=== PATIENT | male | born 1965 | race Caucasian/White ===

== ENCOUNTER → 2021-09-30 16:10 | Outpatient (BNVA) | payer MEDICAID, SELFPAY | PROVIDERS: PCP Internal Medicine; Visit Provider Surgery | DX: Z12.11 Encounter for screening for malignant neoplasm of colon (principal) | CPT/HCPCS: 99202 ==

== ENCOUNTER 2021-12-10 07:15 | Day surgery (SDC) | payer MEDICAID, SELFPAY ==
--- NOTE | 2021-12-08 15:08 | HO.ANESPROP2 ---
Documented by User: Evy Kurtz NP 12/08/21 15:08 HPI - Anesthesia Eval Consult details Narrative: 56yo M for Colonoscopy with poss Polypectomy PMFSH Active Problems Active Problems: All Active Problems (Updated 12/06/21 @ 13:43 by Carey Perdomo, RN) Colon cancer screening (Acute) Past Medical History Medical History (Updated 12/06/21 @ 13:43 by Carey Perdomo, RN) Colon cancer screening DM type 2 (diabetes mellitus, type 2) Elevated cholesterol History of alcohol abuse Surgical History Surgical History (Updated 12/06/21 @ 13:39 by Carey Perdomo, RN) Hx of colonoscopy Social History Social History Patient Tobacco Use Status: Never used Tobacco Second Hand Smoke Exposure: No Meds Allergies Allergy/AdvReac Type Severity Reaction Status Date / Time metformin [METFORMIN] Allergy Intermediate RASH Verified 12/10/21 07:51 acetaminophen [From Percocet] AdvReac stomach Verified 12/06/21 13:45 pain lisinopril AdvReac Cough Verified 12/06/21 13:45 oxycodone [From Percocet] AdvReac stomach Verified 12/06/21 13:45 pain Home Medications Medication Instructions Recorded Confirmed Last Taken Type aspirin 81 mg tablet,delayed 81 mg PO DAILY 09/30/21 12/06/21 Unknown History release atorvastatin 40 mg tablet 40 mg PO BEDTIME 09/30/21 12/06/21 Unknown History dulaglutide 0.75 mg/0.5 mL 0.75 mg subcut QWEEK 09/30/21 12/06/21 Unknown History subcutaneous pen injector (Trulicity) glipizide 10 mg tablet 10 mg PO DAILY 09/30/21 12/06/21 Unknown History insulin glargine 100 unit/mL (3 18 unit subcut QPM 09/30/21 12/06/21 Unknown History mL) subcutaneous pen (Lantus Solostar U-100 Insulin) losartan 25 mg tablet 25 mg PO DAILY 09/30/21 12/06/21 Unknown History pioglitazone 30 mg tablet 30 mg PO DAILY 09/30/21 12/06/21 Unknown History Exam Exam Date and Time: December 08, 2021 870 Assessment and Plan Assessment Anesthesia Assessment: Chart Reviewed Documented by User: Feliciano Fajardo MD 12/10/21 12:50 [facility] Past Medical History Medical History (Updated 12/06/21 @ 13:43 by Carey Perdomo RN) Colon cancer screening DM type 2 (diabetes mellitus, type 2) Elevated cholesterol History of alcohol abuse Family History Family history of problems with anesthesia: No Surgical History Surgical History (Updated 12/06/21 @ 13:39 by Carey Perdomo RN) Hx of colonoscopy History of Problems with Anesthesia: No Social History Social History Patient Tobacco Use Status: Never used Tobacco Second Hand Smoke Exposure: No Meds Allergies Allergy/AdvReac Type Severity Reaction Status Date / Time metformin [METFORMIN] Allergy Intermediate RASH Verified 12/10/21 07:51 acetaminophen [From Percocet] AdvReac stomach Verified 12/06/21 13:45 pain lisinopril AdvReac Cough Verified 12/06/21 13:45 oxycodone [From Percocet] AdvReac stomach Verified 12/06/21 13:45 pain Home Medications Medication Instructions Recorded Confirmed Last Taken Type aspirin 81 mg tablet,delayed 81 mg PO DAILY 09/30/21 12/06/21 Unknown History release atorvastatin 40 mg tablet 40 mg PO BEDTIME 09/30/21 12/06/21 Unknown History dulaglutide 0.75 mg/0.5 mL 0.75 mg subcut QWEEK 09/30/21 12/06/21 Unknown History subcutaneous pen injector (Trulicity) glipizide 10 mg tablet 10 mg PO DAILY 09/30/21 12/06/21 Unknown History insulin glargine 100 unit/mL (3 18 unit subcut QPM 09/30/21 12/06/21 Unknown History mL) subcutaneous pen (Lantus Solostar U-100 Insulin) losartan 25 mg tablet 25 mg PO DAILY 09/30/21 12/06/21 Unknown History pioglitazone 30 mg tablet 30 mg PO DAILY 09/30/21 12/06/21 Unknown History Exam Airway Mallampati Class: IV TM Dist: >3cm Neck ROM: Full Denture: Upper Loose/Missing/Broken Teeth: Yes Heart: S1,S2 Lungs: b/l breath sounds Assessment and Plan Assessment Anesthesia Assessment: Anesthesia Plan Discussed Final Anesthetic Review Family History of Problems with Anesthesia: No History of Problems with Anesthesia: No NPO: Yes ASA Class: III Final Preanesthetic Review: Meds/Allgs Chart Reviewed, Consent Obtained/Reviewed and Anes Risks/Benef Reviewed Patient Risk: Intermediate Procedure Risk: Intermediate Anesthetic Plan Anesthetic Plan: MAC: Disposition: Standard PACU
[2021-12-10 07:53] VITALS: BMI 35.6
[2021-12-10 08:06] VITALS: BP 128/75; PULSE 80; RESP 16; TEMP 36.6; O2SAT 94
--- NOTE | 2021-12-10 08:07 | MHC.SHP ---
Pre-Procedural Eval Section A Date of Service: 12/10/21 Section B Chief Complaint: screening Details of Present Illness: Had a suboptimal bowel prep in 2017 Relevant Social History: None Present Medications: see Short Stay Collaborative assessment Medical History: Significant History ( hypertension, diabetes, hyperlipidemia) History of Previous Operations: No relevant previous surgery Allergies: Allergies Allergy/AdvReac Type Severity Reaction Status Date / Time metformin [METFORMIN] Allergy Intermediate RASH Verified 12/10/21 07:51 acetaminophen [From Percocet] AdvReac stomach Verified 12/06/21 13:45 pain lisinopril AdvReac Cough Verified 12/06/21 13:45 oxycodone [From Percocet] AdvReac stomach Verified 12/06/21 13:45 pain Review of Systems Sugical H&P ROS: Negative: Constitution, Cardiovascular, Respiratory, Neurological, Psychiatric, Hem-Onc, Allergic/Immunologic, Gastrointestinal, Genitourinary, Musculoskeletal, Integumentary, Endocrine and Eyes/Ears/Nose/Throat Exam Surgical H&P Exam: Normal: HEENT, Normal: Heart, Normal: Lungs, Normal: Extremities, Normal: Abdomen, Normal: Skin and Normal: Neurological Plan Diagnosis/Plan: Unchanged I have reviewed the history and physical and performed a pertinent physical examination on my patient. No changes have occurred unless specified.
[2021-12-10] MEDS: Lactated Ringers 1,000 ML 100 ML IVCONT (08:09)
[2021-12-10 08:11] LABS: Glucose, Whole Blood 105 mg/dL (60-115)
--- NOTE | 2021-12-10 08:49 | W.PM.OPN ---
Operative Note Operative Note Date of Service: 12/10/21 Narrative: Preop diagnosis: Colon cancer screening Postop diagnosis: 1. Small polyp in the cecum, about 8 mm in diameter, removed with cold forceps 2. one small diverticulum in the transverse colon Procedure: Colonoscopy with polypectomy using cold forceps Surgeon: Kentrell oPlanco MD The patient is a 56-year-old male who had a colonoscopy in 2017 with optimal bowel prep. I had recommended repeating his colonoscopy in 5 years at that time He understood the technique of colonoscopy. He was aware of the risks, benefits, and alternatives. He was brought to the operating room and placed in left lateral decubitus position under monitored anesthesia care. A surgical time-out was done. A full digital rectal exam was done and there were no palpable anal lesions nor induration. The tip of the Olympus colonoscope was gently introduced through the anal orifice advanced with insufflation all the way to the cecum. The cecum was intubated. The cecum was identified by visualization of the ileocecal valve as well as the appendiceal orifice. There was note of relatively flat polyp in the cecum, about 8 mm in size. This was removed using multiple bites of the cold forceps . I then proceeded to withdraw the scope gently with careful examination of the entire colonic mucosa being done with scope withdrawal. The patient had some segments with thin water stools which had to irrigate. Otherwise, it was unlikely that any lesion may have been missed. There was 1 small diverticulum seen in the transverse colon . The rectum was reached. There were no lesions seen. The anal canal was unremarkable. The scope was then withdrawn completely with desufflation. The patient tolerated procedure well. There were no complications noted. Depending on the path report, he may need another colonoscopy in the next 5 years.
[2021-12-10 08:56] VITALS: BP 119/75; PULSE 87; RESP 15; TEMP 36.4; O2SAT 97
[2021-12-10 09:11] VITALS: BP 125/75; PULSE 76; RESP 18; TEMP 36.4; O2SAT 95
== END 2021-12-10 09:40 | disposition home or self-care (01) ==
PROVIDERS: PCP Internal Medicine; Visit Provider Surgery
PROC: 0DBE8ZZ Excision of Large Intestine, Via Natural or Artificial Opening Endoscopic (ICD-10-PCS; CPT 45380; principal; 2021-12-10 08:30)
DX: Z12.11 Encounter for screening for malignant neoplasm of colon (principal); D12.0 Benign neoplasm of cecum; K57.30 Diverticulosis of large intestine without perforation or abscess without bleeding; E78.00 Pure hypercholesterolemia, unspecified; F10.11 Alcohol abuse, in remission; E11.9 Type 2 diabetes mellitus without complications; Z79.4 Long term (current) use of insulin; Z79.82 Long term (current) use of aspirin; Z79.899 Other long term (current) drug therapy; Z88.8 Allergy status to other drugs, medicaments and biological substances
CPT/HCPCS: 45380; 82947; 88305

== ENCOUNTER 2023-01-31 15:47 | Outpatient (REF) | payer MEDICAID, SELFPAY ==
--- NOTE | ~2023-01-31 | XR_ITS ---
EXAMINATION: XR KNEE, LEFT CLINICAL INFORMATION: Pain in left knee COMPARISON: None available. TECHNIQUE: Four views of the left knee. FINDINGS: No fracture or joint effusion. Alignment is anatomic. Joint spaces are maintained. No abnormal soft tissue calcification. XR/XR knee LT 3V IMPRESSION: Normal left knee.
== END 2023-01-31 15:48 | disposition home or self-care (01) ==
LOC: HO.HHCX 15:47
PROVIDERS: Visit Provider Internal Medicine
DX: M25.562 Pain in left knee (principal)
CPT/HCPCS: 73562

== ENCOUNTER 2023-02-28 09:06 | Outpatient (REF) | payer MEDICAID, SELFPAY ==
[2023-02-28 11:47] LABS: Alanine Aminotransferase 32 U/L (0-40); Albumin Level 4.2 g/dL (3.5-5.0); Alkaline Phosphatase 67 U/L (39-117); Aspartate Amino Transferase 26 U/L (5-37); Bilirubin Direct 0.3 mg/dL (0.0-0.5); Bilirubin Total 0.8 mg/dL (0.0-1.0); Cholesterol 154 mg/dL (<200); HDL Cholesterol 46 mg/dL (>40); LDL Cholesterol Calculated 95 mg/dL (<100); Total Protein 7.6 g/dL (6.5-8.0); Triglycerides 65 mg/dL (<150)
== END 2023-02-28 09:07 | disposition home or self-care (01) ==
LOC: HO.HHCL 09:06
PROVIDERS: Visit Provider Internal Medicine
DX: E78.2 Mixed hyperlipidemia (principal)
CPT/HCPCS: 36415; 80061; 80076

== ENCOUNTER 2023-03-10 14:43 | Outpatient (AMB) | payer MEDICAID, SELFPAY ==
--- NOTE | 2023-03-10 14:45 | MHC.OFFVIS ---
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 No hx of Injections, and brace. Hx of left knee locking. Patient reports ongoing pain for 2 months. He states taking Tylenol with no relief. Pain is on the medial aspect of the knee per patient. He states that his pain is worse when using the stairs and getting up from a sitting position. Pain get so bad to the point he is unable to get up from his bed per patient. 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 The patient claims to have a history of left knee locking. He states his pain has been ongoing for the last 2 months. He confirms taking Tylenol with no relief. He claims the pain is on the medial aspect of the left knee. He reports an increase in pain with use of the stairs and getting up from a sitting position. He states the pain can become so bad that he is unable to get up. Patient denies a history of cortisone injections or bracing. [facility] Medical History (Updated 03/10/23 @ 15:16 by Olga Magallon) History of alcohol abuse Elevated cholesterol DM type 2 (diabetes mellitus, type 2) Colon cancer screening Surgical History (Updated 12/06/21 @ 13:39 by Carey Perdomo RN) Hx of colonoscopy Social History Patient Tobacco Use Status: Never used Tobacco Second Hand Smoke Exposure: No Review of Systems Const All systems reviewed & are unremarkable except as noted in HPI and below Physical Exam Vital Signs: BMI result Body Mass Index 36.4 Const General: cooperative and no acute distress Orientation/consciousness: patient oriented x3 Resp Effort & Inspection: normal respiratory effort and able to speak in complete sentences Cardio Peripheral pulses: Peripheral pulses 2+ throughout Skin General skin exam: no rashes or lesions noted Neuro General: patient oriented x3 Extrem Other: Left knee: Tenderness to palpation medial joint line. Negative Miguel's. Negative anterior drawer. NVI. Office Procedures Joint Injection/Drain Joint Injection/Drain Primary Site: left knee Prep: site was prepped using aseptic technique, ethochloride spray was applied and injection warnings given Injected: 40 mg of, DepoMedrol, with 8 mL of (2% plain lido ) and in the joint Approach Used: anterolateral Procedure: The patient tolerated the procedure well, but had some pain with the injection and there was some relief with the local anesthesia Coding 95471 - Large joint Procedure code (CPT) selection complete Results Reviewed Results Reviewed: 03/10/23 15:01 Lidocaine HCl 2 % MPF [Xylocaine 2 % MPF] 5 ml .ROUTE .STK-MED ONE methylPREDNISolone acetate [DEPO-MedroL] 40 mg .ROUTE .STK-MED ONE Assessment & Plan Assessment & Plan (1) Internal derangement of left knee: Code(s): M23.92 - Unspecified internal derangement of left knee (2) Diabetes mellitus: Code(s): E11.9 - Type 2 diabetes mellitus without complications Plan Mr. Estes is a 57-year-old male who presents in the office today, as a new patient, for an evaluation of left knee pain. The patient claims to have a history of left knee locking. He states his pain has been ongoing for the last 2 months. He confirms taking Tylenol with no relief. He claims the pain is on the medial aspect of the left knee. He reports an increase in pain with use of the stairs and getting up from a sitting position. He states the pain can become so bad that he is unable to get up. Patient denies a history of cortisone injections or bracing. The patient was offered a cortisone injection in the left knee with 40 mg of DepoMedrol. The patient was explained the risk, benefits, and alternatives to receiving this injection. After receiving consent for the injection, the patient had the procedure done while in office today. The patient tolerated the procedure well with no complications. Due to the patient?s history of diabetes, they were instructed to monitor his blood glucose level. The patient was informed that they could see a rise in their numbers and if the numbers became too high, they were instructed to call their PCP. The patient was also informed that they could have facial flushing as a side effect of the injection but this will pass. I would like for him to update me in 4 weeks via phone call. In the event his symptoms have not improved we will move forward with an MRI to further evaluate the integrity of the left knee. Follow up will be in 4 weeks via telehealth, or sooner if needed. X-rays of the left knee which were obtained while in the office today and were reviewed by me, Julia White PA-C, revealed no acute fracture or dislocation. Orders: Orders XR knee standing BI 03/10/23 M25.569 - Pain in unspecified knee XR knee LT 1V 03/10/23 M25.569 - Pain in unspecified knee Patient Instructions: Scribed for Julia White PA-C by Olga Magallon medical sales representative, on 03/10/2023 at 2:46 pm, EST. Coding Level of Care Code New Pt Level 4 (37552) Diagnoses Internal derangement of left knee M23.92 Diabetes mellitus E11.9 CPT Codes Coding - 27860 Large joint: 05257 - Large joint ([id number])
[2023-03-10 14:55] VITALS: BMI 36.4
== END 2023-03-10 15:13 | disposition home or self-care (01) ==
PROVIDERS: PCP Internal Medicine; Visit Provider Physician Assistant
DX: M23.92 Unspecified internal derangement of left knee (principal); E11.9 Type 2 diabetes mellitus without complications
CPT/HCPCS: 20610; 99204

== ENCOUNTER 2023-03-10 15:33 | Outpatient (REF) | payer MEDICAID, SELFPAY ==
--- NOTE | ~2023-03-10 | XR_ITS ---
EXAMINATION: XR KNEE AP STANDING, sunrise view left knee. CLINICAL INFORMATION: 01/31/2023 COMPARISON: None available. TECHNIQUE: AP bilateral standing view of the knees was obtained. FINDINGS: Right knee: Mild medial joint space narrowing. Tiny medial marginal and posterior patellar osteophytes. Left knee: Minimal medial joint space narrowing. XR/XR knee LT 1V IMPRESSION: Mild degenerative changes in the right knee.
--- NOTE | ~2023-03-10 | XR_ITS ---
EXAMINATION: XR KNEE AP STANDING, sunrise view left knee. CLINICAL INFORMATION: 01/31/2023 COMPARISON: None available. TECHNIQUE: AP bilateral standing view of the knees was obtained. FINDINGS: Right knee: Mild medial joint space narrowing. Tiny medial marginal and posterior patellar osteophytes. Left knee: Minimal medial joint space narrowing. XR/XR knee standing BI IMPRESSION: Mild degenerative changes in the right knee.
== END 2023-03-10 15:34 | disposition home or self-care (01) ==
LOC: HO.HOSX 15:33
PROVIDERS: Visit Provider Physician Assistant
DX: M23.92 Unspecified internal derangement of left knee (principal); E11.9 Type 2 diabetes mellitus without complications
CPT/HCPCS: 20610; 73560; 73565; 99212; J1020

== ENCOUNTER 2023-03-25 11:23 | Emergency (ER) | payer MEDICAID, SELFPAY ==
--- NOTE | 2023-03-25 11:47 | ED.GENADULT ---
HPI - General Adult General Chief complaint: Extremity Injury, Lower Stated complaint: L knee pain Time Seen by Provider: 03/25/23 12:02 Source: patient and RN notes reviewed Mode of arrival: ambulatory Limitations: no limitations History of Present Illness HPI narrative: This is a 70-ky[age]b-male, with a hx of diabetes, presenting to the emergency department with a complaint of acute on chronic left knee pain worsening over the last 2 days. He has had no recent injury or trauma to his left knee. He was seen by [facility] on March 10 where he was given a joint injection. He states that his pain has not improved however noticed over the last 2 days his pain has been worsening. He has not been taking any medications at home to treat his current symptoms. Denies any fevers or chills. No other complaints or concerns at this time. MD complaint: Left knee pain Related Data Home Medications Medication Instructions Recorded Confirmed aspirin 81 mg tablet,delayed 81 mg PO DAILY 09/30/21 12/06/21 release atorvastatin 40 mg tablet 40 mg PO BEDTIME 09/30/21 12/06/21 dulaglutide 0.75 mg/0.5 mL 0.75 mg subcut QWEEK 09/30/21 12/06/21 subcutaneous pen injector (Trulicity) glipizide 10 mg tablet 10 mg PO DAILY 09/30/21 12/06/21 insulin glargine 100 unit/mL (3 18 unit subcut QPM 09/30/21 12/06/21 mL) subcutaneous pen (Lantus Solostar U-100 Insulin) losartan 25 mg tablet 25 mg PO DAILY 09/30/21 12/06/21 pioglitazone 30 mg tablet 30 mg PO DAILY 09/30/21 12/06/21 Previous Rx's Medication Instructions Recorded peg 3350-electrolytes 236 240 ml PO Q10M #4,000 mL 09/30/21 gram-22.74 gram-6.74 gram-5.86 gram solution (Golytely) acetaminophen 500 mg capsule 500 mg PO Q6H PRN pain #45 caps 03/25/23 diclofenac sodium 1 % topical gel 4 g topical QID #100 grams 03/25/23 (Arthritis Pain (diclofenac)) Allergies Allergy/AdvReac Type Severity Reaction Status Date / Time metformin [METFORMIN] Allergy Intermediate RASH Verified 03/25/23 11:48 acetaminophen [From Percocet] AdvReac stomach Verified 03/25/23 11:48 pain lisinopril AdvReac Cough Verified 03/25/23 11:48 oxycodone [From Percocet] AdvReac stomach Verified 03/25/23 11:48 pain PMFSH Past Medical History Medical History (Updated 03/26/23 @ 00:02 by Guzman Morales) History of alcohol abuse Elevated cholesterol DM type 2 (diabetes mellitus, type 2) Colon cancer screening Surgical History (Updated 12/06/21 @ 13:39 by Carey Perdomo RN) Hx of colonoscopy Social History Social History Patient Tobacco Use Status: Never used Tobacco Second Hand Smoke Exposure: No Advance Directives: No Advance Directives Information Provided: No Physical Exam ED Vital Signs: Vital Signs - 24 hr 03/25/23 11:48 Temperature 97.8 F Pulse Rate 98 Respiratory Rate 18 Blood Pressure 109/64 Pulse Oximetry 97 Oxygen Delivery Method Room Air BMI result Body Mass Index 36.6 Const Other: General: Awake, alert, and oriented X3. No acute distress. HEENT: Normal inspection CVS: Normal heart rate and rhythm. Pulses normal. Respiratory: No respiratory distress Skin: Warm, dry, no rashes noted to exposed skin. Normal skin color. Normal skin turgor. Extremities: L knee with no obvious deformity or swelling. Nonerythematous. TTP overlying the right medial joint line, Full ROM of the knee without crepitus. No TTP with varus, valgus strain. No tenderness with anterior posterior drawer test. No calf tenderness. Neuro: Oriented X 3. No motor deficit. No sensory deficit. Medical Decision Making Medical Decision Making MDM Narrative: This is a 20-onwq-dui-male, with a hx of diabetes, presenting to the emergency department with a complaint of acute on chronic left knee pain worsening over the last 2 days. He has had no recent injury or trauma to his pain. He had lidocaine and steroidal injection performed at [facility] on 03/10/2023. Pt nontoxic appearing, knee with full ROM, no erythema. No new trauma or injury, no need for repeat imaging at this time. Has not tried any pain medication at home - d/c with tylenol and advised to f/u with orthopedics. Given return precautions, stable for d/c, Differential Diagnosis Differential Diagnoses: The differential diagnosis associated with the presentation includes acute on chronic knee pain, osteoarthritis, sprain, strain, contusion, septic joint - unlikely. Discharge Plan Discharge Clinical Impression: Chronic knee pain Patient Disposition: Home, Self-Care Instructions: Knee Pain (ED) Additional Instructions: You presented to the emergency department due to left knee pain. Please call orthopedics on Monday stating was seen in the emergency room and you have had worsening pain. They may want to refer you to physical therapy or see you sooner. You may apply ice or heat, gentle range of motion, massage can also help. You may wear Srikanth wrap to your knee. If this causes you more pain, you may take this off. Please take prescribed medication as directed. If any new or worsening symptoms occur including but not limited to worsening pain, redness, increased swelling to your knee, chest pain or shortness breath, please return for re-evaluation. Usted acudi? a urgencias por dolor en la rodilla izquierda. Llame a ortopedia el lunes indicando que fue atendido en la radha de emergencias y que ramirez dolor garg empeorado. Es posible que quieran derivarlo a fisioterapia o verlo antes. Puede aplicar hielo o calor, un rango de movimiento suave, el masaje tambi?n puede ayudar. Puede usar Srikanth Wrap hasta la rodilla. Si esto le causa m?s dolor, puede quit?rselo. [place] los medicamentos recetados seg?n las indicaciones. Si se presenta alg?n s?ntoma nuevo o que empeora, incluidos, entre otros, empeoramiento del dolor, enrojecimiento, aumento de la hinchaz?n de la rodilla, dolor en el pecho o dificultad para respirar, regrese para saskia nueva evaluaci?n. Prescriptions: New acetaminophen 500 mg capsule 500 mg PO Q6H PRN (Reason: pain) Qty: 45 0RF diclofenac sodium [Arthritis Pain (diclofenac)] 1 % gel 4 g topical QID Qty: 100 0RF Rx Instructions: apply to knee up to 4 times a day. No Action Trulicity 0.75 mg/0.5 mL pen injector 0.75 mg subcut QWEEK pioglitazone 30 mg tablet 30 mg PO DAILY losartan 25 mg tablet 25 mg PO DAILY glipizide 10 mg tablet 10 mg PO DAILY atorvastatin 40 mg tablet 40 mg PO BEDTIME Lantus Solostar U-100 Insulin 100 unit/mL (3 mL) insulin pen 18 unit subcut QPM aspirin 81 mg tablet,delayed release (DR/EC) 81 mg PO DAILY peg 3350-electrolytes [Golytely] 236-22.74-6.74 -5.86 gram recon soln 240 ml PO Q10M Qty: 4000 0RF Rx Instructions: until fecal effluent is clear Interventions: ED Discharge Assessment Last Done: 03/25/23 12:11 Discharge Date/Time: 03/25/23 12:12
[2023-03-25 11:48] VITALS: BP 109/64; PULSE 98; RESP 18; TEMP 36.6; O2SAT 97; BMI 36.6
== END 2023-03-25 12:12 | disposition home or self-care (01) ==
PROVIDERS: Emergency Provider Emergency Medicine; PCP Internal Medicine
DX: M25.562 Pain in left knee (principal); G89.29 Other chronic pain; E11.9 Type 2 diabetes mellitus without complications; E78.5 Hyperlipidemia, unspecified; Z79.82 Long term (current) use of aspirin; Z79.4 Long term (current) use of insulin; Z79.899 Other long term (current) drug therapy
CPT/HCPCS: 99282; 99283

== ENCOUNTER 2023-10-31 08:24 | Outpatient (REF) | payer MEDICAID, SELFPAY ==
[2023-11-02 08:56] LABS: Lyme Abs Screen <0.90 index
== END 2023-10-31 08:25 | disposition home or self-care (01) ==
LOC: HO.HHCL 08:24
PROVIDERS: Visit Provider Internal Medicine
DX: M25.562 Pain in left knee (principal)
CPT/HCPCS: 36415; 86617; 86618

== ENCOUNTER 2024-09-16 08:56 | Outpatient (REF) | payer MEDICAID, SELFPAY ==
--- OUTSIDE RECORDS SUMMARY | 2024-09-16 09:04 | XMS_ITS | Encounter Summary ---
Author Organization 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 Name Role Phone Maximiliano Byers MD Primary Care Provide r Encounter Details Date Type Department Care Team ([facility] Contact Info) Description 09/07/2022 Abstract [facility] [address] [place] [address] [phone] Maximiliano Byers MD [address] [place] [address] [phone] Social History Tobacco Use Types Packs/Day Years Used Date Smoking Tobacco: Never Passive Smoke Exposure: Never Smokeless Tobacco: Former Alcohol Use Standard Drinks/Week Comments Never 0 (1 standard drink = 0.6 oz pur e alcohol) Sex and Gender Information Value Date Recorded Sex Assigned at Male 03/07/2022 10:18 AM EDT Legal Sex Male 10:18 AM EDT Gender Identity Male 03/07/2022 10:18 AM EDT Sexual Orientation Straight 03/07/2022 10 :18 AM EDT documented as of this encounter Plan of Treatment Upcoming Encounters Date Type Department Care Team (Late Contact Info) Description 09/16/2024 10:40 AM EDT Office Visit [facility] [address] [place] [address] [phone] 11/21/2024 3:00 PM EDT Office Visit [facility] [address] [place] [address] [phone] Maximiliano Byers MD [address] [place] [address] [phone] documented as of this encounter Procedures Procedure Name Priority Date/Time Associated Diagnosis Comments COLONOSCOPY Routine 12/10/2021 documented in this encounter Results * Colonoscopy (12/10/2021) Colonoscopy Normal Normal 12/10/2021 Roseline Roshni Brito - 12/10/2021 3:32 PM EDT Recommended 5 year follow up ([facility] Historical Provider [employer] Edited Result - Final documented in this encounter Visit Diagnoses Not on filedocumented in this encounter Care Teams Mold Unloader Relationship Specialty Start Date End Date Maximiliano Byers MD [address] [place] [address] PCP - General Internal Medicine 05/08/18 documented as of this encounter
--- OUTSIDE RECORDS SUMMARY | 2024-09-16 09:04 | XMS_ITS | Encounter Summary ---
Author Organization [employer] Address [address] [facility] 7t [place] [address] Care Team Providers Care Carroting Machine Offbearer Name Role Phone Maximiliano Byers MD Primary Care Provide r Reason for Visit * Reason Comments Med Refill Encounter Details Date Type Department Care Team ([facility] st Contact Info) Description 05/17/2023 Refill [facility] [address] [place], [place] [phone] Maximiliano Byers MD [address] [place], [place] [phone] Type 2 diabetes mellitus without complication, without long-term current use of insulin ([facility]) Social History Tobacco Use Types Packs/Day Years Used Date Smoking Tobacco: Never Passive Smoke Exposure: Never Smokeless Tobacco: Former Alcohol Use Standard Drinks/Week Comments Never 0 (1 standard drink = 0.6 oz pur e alcohol) Depression Answer Date Recorded Patient Health Questionnaire-9 Score 0 02/01/2023 Housing Stability Answer Date Recorded What is your housing situation today? I have housing today, but I am worried about losing housing in the future 02/20/[address] you li ve. Do you have problems with any of the following? None of the above 02/20/2023 Food Insecurity Answer Date Recorded Within the past 12 months, y ou worried that your food would run out before you got money to buy more: Never True 02/20/2023 Within the past 12 months,th e food you bought just didn't last and you didn't have enough money to get more: Never True Transportation Answer Date Recorded In the past 12 months, has l ack of transportation kept you from medical appts, meetings, work or from getting things needed for daily living? No 02/20/2023 Utilities Answer Date Recorded In the past 12 months, has t he electric, gas, oil or water company threatened to shut off services in your home? No 02/20/2023 Depression Answer Date Recorded Patient Health Questionnaire-2 Score 0 02/01/2023 Sex and Gender Information Value Date Recorded Sex Assigned at Male 03/07/2022 10:18 AM EDT Legal Sex Male 10:18 AM EDT Gender Identity Male 03/07/2022 10:18 AM EDT Sexual Orientation Straight 03/07/2022 10 :18 AM EDT documented as of this encounter Plan of Treatment Upcoming Encounters Date Type Department Care Team (Late st Contact Info) Description 09/16/2024 10:40 AM EDT Office Visit [facility] [address] [place] [phone] 11/21/2024 3:00 PM EDT Office Visit [facility] [address] [place] [phone] Maximiliano Byers MD [address] [place] [phone] documented as of this encounter Visit Diagnoses Diagnosis Type 2 diabetes mellitus without complication, without long-term current use of insulin ([facility]) documented in this encounter Additional Health Concerns Assessment Noted Time PHQ-9 Depression Total Score: 0 02/02/20 23 4:22 PM EDT documented as of this encounter Care Teams Carroting Machine Offbearer Relationship Specialty Start Date End Date Maximiliano Byers MD [address] [place] [phone] PCP - General Internal Medicine 05/08/18 documented as of this encounter
--- OUTSIDE RECORDS SUMMARY | 2024-09-16 09:04 | XMS_ITS | Encounter Summary ---
Author Organization [employer] Address [address] [facility] 7t [place] [address] Care Team Providers Care Biometric Fingerprinting Technician Name Role Phone Maximiliano Byers MD Primary Care Provide r Reason for Visit * Reason Comments Med Refill Encounter Details Date Type Department Care Team ([facility] st Contact Info) Description 09/12/2024 Refill [facility] [address] [place], [place] [phone] Maximiliano Byers MD [address] [place], [place] [phone] Mixed hyperlipidemia Social History Tobacco Use Types Packs/Day Years Used Date Smoking Tobacco: Former Cigarettes Passive Smoke Exposure: Past Smokeless Tobacco: Never Alcohol Use Standard Drinks/Week Comments Not Currently 0 (1 standard drink = 0.6 oz pur e alcohol) Depression Answer Date Recorded Patient Health Questionnaire-9 Score 0 02/08/2024 Patient Health Questionnaire-9 Score 0 02/08/2024 Last PHQ-9: Questionnaire Data Not on file 1 Housing Stability Answer Date Recorded What is your housing situation today? I have willy hansen 07/17/[address] you li ve. Do you have problems with any of the following? None of the above 07/17/2023 Food Insecurity Answer Date Recorded Within the past 12 months, y ou worried that your food would run out before you got money to buy more: Never True 07/17/2023 Within the past 12 months,th e food you bought just didn't last and you didn't have enough money to get more: Never True 03/2024 Transportation Answer Date Recorded In the past 12 months, has l ack of transportation kept you from medical appts, meetings, work or from getting things needed for daily living? No 07/17/2023 Utilities Answer Date Recorded In the past 12 months, has t he electric, gas, oil or water company threatened to shut off services in your home? No 07/17/2023 Depression Answer Date Recorded Patient Health Questionnaire-2 Score 0 02/08/2024 Sex and Gender Information Value Date Recorded Sex Assigned at Male 03/07/2022 10:18 AM EDT Legal Sex Male 10:18 AM EDT Gender Identity Male 03/07/2022 10:18 AM EDT Sexual Orientation Straight 03/07/2022 10 :18 AM EDT documented as of this encounter Plan of Treatment Upcoming Encounters Date Type Department Care Team (Late st Contact Info) Description 09/16/2024 10:40 AM EDT Office Visit [facility] [address] [place] [phone] 11/21/2024 3:00 PM EDT Office Visit [facility] [address] [place] [phone] Maximiliano Byers MD [address] [place] [phone] documented as of this encounter Visit Diagnoses Diagnosis Mixed hyperlipidemia documented in this encounter Additional Health Concerns Assessment Noted Time PHQ-9 Depression Total Score: 0 02/08/20 24 3:03 PM EDT documented as of this encounter Care Teams Biometric Fingerprinting Technician Relationship Specialty Start Date End Date Maximiliano Byers MD [address] [place] [phone] PCP - General Internal Medicine 05/08/18 documented as of this encounter
--- OUTSIDE RECORDS SUMMARY | 2024-09-16 09:04 | XMS_ITS | Encounter Summary ---
Author Organization [employer] Address 75 [facility] 7t [place] [address] Care Team Providers Care Veterinary Anatomist Name Role Phone Maximiliano Byers MD Primary Care Provide r Encounter Details Date Type Department Care Team (Latest Contact Info) Description 09/16/2024 Travel Social History Tobacco Use Types Packs/Day Years [...] Description 09/16/2024 10:40 AM EDT Office Visit [facility] [address] [place] [phone] 11/21/2024 3:00 PM EDT Office Visit [facility] [address] [place] [phone] Maximiliano Byers MD [address] [place] [phone] documented as of this encounter Visit Diagnoses Not on filedocumented in this encounter Additional Health Concerns Assessment Noted Time PHQ-9 Depression Total Score: 0 02/08/20 24 3:03 PM EDT documented as of this encounter Care Teams Veterinary Anatomist Relationship Specialty Start Date End Date Maximiliano Byers MD [address] [place] [phone] PCP - General Internal Medicine 05/08/18 documented as of this encounter
--- OUTSIDE RECORDS SUMMARY | 2024-09-16 09:04 | XMS_ITS | Encounter Summary ---
Author Organization [employer] Address [address] [facility] 7t [place] [address] Care Team Providers Care Steam Shovel Operator Name Role Phone Maximiliano Byers MD Primary Care Provide r Reason for Visit * Reason Comments Med Refill Encounter Details Date Type Department Care Team ([facility] st Contact Info) Description 05/21/2022 Refill [facility] [address] [place], [place] [phone] Maximiliano Byers MD [address] [place], [place] [phone] Type 2 diabetes mellitus without complication, without long-term current use of insulin ([facility]) (Primary Dx) Social History Tobacco Use Types Packs/Day Years [...] Orientation Straight 03/07/2022 10 :18 AM EDT COVID-19 Exposure Response Date Recorded In the last 10 days, have yo u been in contact with someone who was confirmed or suspected to have Coronavirus/COVID-19? No / Unsure 05/03/2022 2:32 PM EST documented as of this encounter Miscellaneous Notes * Telephone Encounter - Maximiliano Allen MD - 05/24/2022 3:27 PM EST Patient was prescribed Trulicity 1.5 during his last visit. Please contact Pharmacy to make sure hehas the correct prescription documented in this encounter Plan of Treatment Upcoming Encounters Date Type Department Care Team (Late st Contact Info) Description 09/16/2024 10:40 AM EDT Office Visit [facility] [address] [place] [phone] 11/21/2024 3:00 PM EDT Office Visit [facility] [address] [place] [phone] Maximiliano Byers MD [address] [place] [phone] documented as of this encounter Visit Diagnoses Diagnosis Type 2 diabetes mellitus without complication, without long-term current use of insulin ([facility])- Primary documented in this encounter Care Teams Steam Shovel Operator Relationship Specialty Start Date End Date Maximiliano Byers MD [address] [place] [phone] PCP - General Internal Medicine 05/08/18 documented as of this encounter
--- OUTSIDE RECORDS SUMMARY | 2024-09-16 09:04 | XMS_ITS | Clinical Summary ---
Author Organization [employer] Address [address] [place] [address] Care Team Providers Care Sanitation Tank Washer Name Role Phone Maximiliano Byers MD Primary Care Provide r Allergies Active Allergy Reactions Criticality Noted Date Comments Acetaminophen 12/17/2014 Other reaction(s): Stomach Pain Lisinopril 02/11/2014 Other reaction(s): Cough Metformin 02/11/2014 Other reaction(s): Hives Oxycodone 12/17/2014 Other reaction(s): Stomach Pain Medications * This document contains information received from the source organization and may not represent a complete record from that organization. albuterol 108 (90 Base) MCG/ACT inhaler inhale 2 puffs by Inhalation route every 4-6 hours as needed for shortness of breath wheezing 022 Active clotrimazole (Lotrimin) 1 % cream Apply topically every 12 (twelve) hours. 019 Active loratadine (Claritin) 10 MG tabletIndications :Acute URI Take 1 tablet (10 mg) by mouth in the morning. 30 tablet 023 Active fluticasone (Flonase Allergy Relief) 50 MCG/ACT nasal sprayIndications: Acute URI Administer 1 spray into each nostril in the morning. Shake gently. Before first use, prime pump. After use, clean tip and replace cap. 16 g 023 Active pseudoephedrine (Sudafed) 30 MG tabletIndications :Acute URI Take 1 tablet (30 mg) by mouth every 6 (six) hours if needed for congestion for up to 10 days. 30 tablet 023 Active TRUEplus Lancets 33G miscIndications:T ype 2 diabetes mellitus without complication, without long-term current use of insulin ([facility]) TEST BLOOD SUGAR FOUR TIMES DAILY 100 each 11 023 Active Alcohol Swabs (Alcohol Prep) 70 % pads USE FOUR TIMES DAILY 100 each 11 023 Active Pentips 32G X 4 MM misc USE DIRECTED TO INJECT INSULIN 100 each 11 024 Active pioglitazone (Actos) 30 MG tabletIndications :Type 2 diabetes mellitus without complication, without long-term current use of insulin ([facility]) TAKE 1 TABLET BY MOUTH ONCE DAILY IN THE MORNING 90 tablet 1 024 Active FREESTYLE LITE test stripIndications: Type 2 diabetes mellitus without complication, without long-term current use of insulin ([facility]) USE DIRECTED TO TEST BLOOD SUGAR TWICE DAILY 100 strip 5 024 Active Lantus SoloStar 100 UNIT/ML penIndications:Ty pe 2 diabetes mellitus without complication, without long-term current use of insulin ([facility]) INJECT 24 UNITS SUBCUTANEOUSLY AT BEDTIME 15 mL 3 025 Active losartan (Cozaar) 25 MG tablet TAKE 1 TABLET BY MOUTH EVERY DAY 90 tablet 1 025 Active doxycycline (Vibramycin) 100 MG capsuleIndication s:Tick bite of right back wall of thorax, initial encounter Take 2 tbs x 1 with at least 8 ounces (large glass) of water, do not lie down for 30 minutes after 2 capsule 025 Active Trulicity 3 MG/0.5ML solution auto-injectorIndi cations:Type 2 diabetes mellitus without complication, without long-term current use of insulin ([facility]) INJECT ONE PEN (= 3MG) SUBCUTANEOUSLY ONCE A WEEK DIRECTED 2 mL 6 025 Active Aspirin Low Dose 81 MG EC tabletIndications :Mixed hyperlipidemia TAKE 1 TABLET BY MOUTH EVERY DAY 90 tablet 1 025 Active atorvastatin (Lipitor) 40 MG tabletIndications :Mixed hyperlipidemia TAKE 1 TABLET BY MOUTH EVERY DAY AT BEDTIME 90 tablet 1 025 Active Aspirin Low Dose 81 MG EC tabletIndications :Mixed hyperlipidemia TAKE 1 TABLET BY MOUTH ONCE DAILY. 90 tablet 3 024 2024 Discontinued atorvastatin (Lipitor) 40 MG tabletIndications :Mixed hyperlipidemia TAKE 1 TABLET BY MOUTH AT BEDTIME 90 tablet 3 024 2024 Discontinued dulaglutide (Trulicity) 3 MG/0.5ML solution pen-injectorIndic ations:Type 2 diabetes mellitus without complication, without long-term current use of insulin ([facility]) Inject 3 mg under the skin 1 (one) time per week. 4 each 6 024 2024 Discontinued Active Problems Problem Noted Date Diagnosed Date Skin tag 07/25/2024 Assessment & Plan (07/25/2024 2:46 PM EDT): Pt with hyperpigmented skin lesion right groin. Pt reports increase in size. Plan: Dermatology referral Cyst of perianal area 07/25/2024 Assessment & Plan (07/25/2024 2:49 PM EDT): Pt has a superficial, oval, pearly white lesion around 4 o'clock paulette anal area, non tender, no discharge , hard to palpation Etiology ? Cyst ? 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 period of time Plan: Doxy 200 mg po x 1 Pt in contact with ticks frequently would like to be tested for Lyme disease Routine physical examination 07/25/2024 Assessment & Plan (07/25/2024 2:59 PM EDT): Exam within normal limits aside from obesity and other issues mentioned Preventative health care 07/25/2024 Assessment & Plan (07/25/2024 3:02 PM EDT): PSA: 06/23/2022: Normal Colonoscopy: 07/2016 Dr Polanco Tubular adenoma 5 year f/u recommended , done 12/10/2021 Moderate atrophy of the maxilla 09/01/2023 Sleep disturbances 07/25/2023 Assessment & Plan (11/07/2023 3:29 PM EDT): Patient with reported witnessed apneas by his and loud snoring Pt with severe obesity Plan: sleep study to rule out MEGHAN Assessment & Plan (07/25/2023 2:59 PM EDT): Patient with reported witnessed apneas by his and loud snoring Pt with severe obesity Plan: sleep study to rule out MEGHAN Complete edentulism 04/17/2023 Acute pain of left knee 01/31/2023 Assessment & Plan (07/25/2023 2:36 PM EDT): New onset, in the absence of any injury, causing him difficulty walking On exam there is no swelling. He reports knee locks in Plain x-ray left knee, 01/2023 Normal Seen by ortho eval to rule out internal derangement back in 03/2023 received steroid injection Assessment & Plan (01/31/2023 3:23 PM EDT): New onset, in the absence of any injury, causing him difficulty walking On exam there is no swelling. He reports knee locks in Plan: Plain x-ray left knee, ortho eval to rule out internal derranghement Irritability and anger 01/31/2023 Assessment & Plan (02/06/2023 8:32 AM EDT): Assessment: Patient presents with irritability which is normal behavior when their are contributing factors other's would normally become upset at. Patient and were provided option of being referred for couples counseling as well as patient being referred for individual therapy. Patient declined both at this time. At this time Rojelio Estes meets criteria for Visit Diagnoses: Problem List Items Addressed This Visit Other Alcoholism (CMS/HCC) Personal history of alcoholism (CMS/HCC) Irritability and anger Patient ready to address current needs No Strengths include motivation to obtain medical help PLAN: 1. Follow up with [facility]: Not recommended for follow-up 2. Patient goal is to address medical health 3. Behavioral Recommendations a. May reach out to [facility], if needed b. Utilize coping skills provided Assessment & Plan (01/31/2023 3:26 PM EDT): Pt's reports mood liability for > 1 year. Concerned about underlying mental illness and issues with anger management Personal history of alcoholism 05/03/2022 Assessment & Plan (02/08/2024 3:13 PM EDT): Pt drinks 3 beers once a week Alcoholism 12/19/2017 Assessment & Plan (05/03/2022 3:41 PM EST): He states he is not drinking previously he agreed to ETOH abuse treatment, he did not come Tubular adenoma of colon 06/13/2017 Assessment & Plan (05/03/2022 3:42 PM EST): Seen on Colonoscopy 07/2016 Dr Polanco 5 year f/u recommended , done 12/10/2021 Diabetes mellitus 02/11/2014 Assessment & Plan (07/25/2024 2:56 PM EDT): Pt is here for f/u Hgb A1c 07/25/2024: 6.2 from 9.2 He is on a regimen of: Glipizide 10 mg 1 In AM, Actos 30 mg po daily (Metformin gives him HIVES) Lantus 24 units and Trulicity 3 mg once a week, sc q pm His insurance did not want to cover Invokana . He developed Balanitis due to Jardiance Did not bring his glucometer Eye exam: 12/30/[address] Adrienne Del Valle Microalbumin 01/20/2021 was 0.2. Pt developed cough due to Lisinopril. changed to ARB /Losartan. Foot check today is risk of: zero Pt reports compliance with ASA 81 mg po daily Pt is no longer following with our sales service manager and Ammonia Box Operator Plan: DC Glipizide Pt advised to: adhere to diabetic diet check your blood sugars regularly check your feet on a daily basis. Assessment & Plan (02/08/2024 3:12 PM EDT): Pt is here for f/u Hgb A1c 02/08/2024: from 9.2 He is on a regimen of: Glipizide 10 mg 1 In AM and 1.5 TAB PM, Actos 30 mg po daily (Metformin gives him HIVES) Lantus 24 units and Trulicity 3 mg once a week, sc q pm His insurance did not want to cover Invokana . He developed Balanitis due to Jardiance Did not bring his glucometer Eye exam: 12/30/[address] Adrienne Del Valle Microalbumin 01/20/2021 was 0.2. Pt developed cough due to Lisinopril. changed to ARB /Losartan. Foot check today is risk of: zero Pt reports compliance with ASA 81 mg po daily Pt is no longer following with our sales service manager and Ammonia Box Operator Plan:No changes until he brings his glucometer Pt advised to: adhere to diabetic diet check your blood sugars regularly check your feet on a daily basis. Assessment & Plan (11/07/2023 3:48 PM EDT): Pt is here for f/u DM remains stable Hgb A1c 11/07/2023: 9.2 He is on a regimen of: Glipizide 10 mg 1 In AM and 1.5 TAB PM, Actos 30 mg po daily (Metformin gives him HIVES) Lantus 18 units and Trulicity 1.5 mg once a week, sc q pm His insurance did not want to cover Invokana . He developed Balanitis due to Jardiance BG average 108 Eye exam: 12/30/[address] Adrienne Del Valle Microalbumin 01/20/2021 was 0.2. Pt developed cough due to Lisinopril. changed to ARB /Losartan. Foot check today is risk of: zero Pt reports compliance with ASA 81 mg po daily Pt is no longer following with our sales service manager and Ammonia Box Operator Plan:Increase Lantus to 24 units subcutaneous at bedtime Pt placed on a waiting list for the 3 mg. Of Trulicity Pt advised to: adhere to diabetic diet check your blood sugars regularly check your feet on a daily basis. Assessment & Plan (07/25/2023 3:01 PM EDT): Pt is here for f/u DM remains stable He is on a regimen of: Trulicity 3 mg once a week, Glipizide 10 mg 1 In AM and 1.5 TAB PM, Actos 30 mg po daily (Metformin gives him HIVES) and Lantus 18 units sc q pm His insurance did not want to cover Invokana . He developed Balanitis due to Jardiance BG average 103 Hgb A1c 07/25/2023: 7.4 Eye exam: 12/30/[address] Adrienne Del Valle Microalbumin 01/20/2021 was 0.2. Pt developed cough due to Lisinopril. changed to ARB /Losartan. Foot check today is risk of: zero Pt reports compliance with Asa 81 mg po daily Pt is no longer following with our sales service manager and Ammonia Box Operator Plan: f/u in 4 months Pt advised to: adhere to diabetic diet check your blood sugars regularly check your feet on a daily basis. Assessment & Plan (01/31/2023 3:19 PM EDT): Pt is here for f/u DM remains stable He is on a regimen of: Trulicity 3 mg once a week, Glipizide 10 mg 1 In AM and 1.5 TAB PM, Actos 30 mg po daily (Metformin gives him HIVES) and Lantus 18 units sc q pm His insurance did not want to cover Invokana . He developed Balanitis due to Jardiance BG average 118 Hgb A1c 01/31/2023: 7.5 Eye exam: 12/30/[address] Adrienne Del Valle Microalbumin 01/20/2021 was 0.2. Pt developed cough due to Lisinopril. changed to ARB /Losartan. Foot check today is risk of: zero Pt reports compliance with Asa 81 mg po daily Pt is no longer following with our sales service manager and Ammonia Box Operator Plan: Pt advised to: adhere to diabetic diet check your blood sugars regularly check your feet on a daily basis. f/u in 4 months Assessment & Plan (10/04/2022 3:36 PM EDT): Pt is here for f/u DM remains stable He is on a regimen of: Trulicity 1.5 once a week, Glipizide 10 mg 1 In AM and 1.5 TAB PM, Actos 30 mg po daily (Metformin gives him HIVES) and Lantus 18 units sc q pm His insurance did not want to cover Invokana . He developed Balanitis due to Jardiance BG average 112 Hgb A1c 10/04/2022 7.6 Eye exam: 12/30/[address] Adrienne Del Valle Microalbumin 01/20/2021 was 0.2. Pt developed cough due to Lisinopril. changed to ARB /Losartan. Foot check today is risk of: zero Pt reports compliance with Asa 81 mg po daily Pt is no longer following with our sales service manager and Ammonia Box Operator Plan: Increase Trulicity to 3 mg once a week Pt advised to: adhere to diabetic diet check your blood sugars regularly check your feet on a daily basis. f/u in 4 months Assessment & Plan (05/03/2022 3:10 PM EST): Pt is here for f/u DM stable He is on a regimen of: Trulicity 0.75 once a week, Glipizide 10 mg 1 In AM and 1.5 TAB PM, Actos 30 mg po daily (Metformin gives him HIVES) and Lantus 18 units sc q pm His insurance did not want to cover Invokana . He developed Balanitis due to Jardiance BG average 139 Hgb A1c 05/03/2022 was 7.8 Eye exam: 12/30/[address] Adrienne Del Valle Microalbumin 01/20/2021 was 0.2. Pt developed cough due to Lisinopril. changed to ARB /Losartan. Foot check today is risk of: zero Pt reports compliance with Asa 81 mg po daily Pt is no longer following with our sales service manager and Ammonia Box Operator Plan: increase Trulicity to 1.5 mg once a week Pt advised to: adhere to diabetic diet check your blood sugars regularly check your feet on a daily basis. f/u in 4 months Mixed hyperlipidemia 02/11/2014 Assessment & Plan (07/25/2023 2:38 PM EDT): Patient with elevated lipids most recent lipid profile from 02/28/2023 Showed: Component Ref Range & Units 4 mo ago 1 yr ago 2 yr ago Triglycerides <150 mg/dL 65 98 100 Comment: Desirable Triglyceride: less than 150 mg/dLBorderline High Triglyceride 150-199 mg/dLHigh Triglyceride: 200-499 mg/dLVery High Triglyceride: greater than or equal to 5OO mg/dL Cholesterol <200 mg/dL 154 Comment: Desirable Cholesterol: less than 200 mg/dLBorderline High Cholesterol: 200-239 mg/dLHigh Cholesterol: greater than 239 mg/dL LDL Cholesterol Calculated <100 mg/dL 95 Comment: Desirable LDL: less than 100 mg/dLNear Optimal/Above Optimal LDL: 110- 129 mg/dLBorderline High LDL: 130-159 mg/dLHigh LDL: 160-189 mg/dLVery High LDL: greater than or equal to 190 mg/dL HDL Cholesterol >40 mg/dL 46 44 R 46 R Currently on a regimen of: Atorvastatin 40 mg po q pm . advised to try to adhere to a low cholesterol diet, counseled and educated about diet and exercise, Patient encouraged to come up with a personal goal for weight loss. Assessment & Plan (01/31/2023 2:55 PM EDT): Patient with elevated lipids most recent lipid profile from 06/23/2022 showed: TC 165 TG 98 HDL 44 LDL 102 Currently on a regimen of: Atorvastatin 40 mg po q pm . continue with current regimen, repeat Lipid profile advised to try to adhere to a low cholesterol diet, counseled and educated about diet and exercise, Patient encouraged to come up with a personal goal for weight loss. Assessment & Plan (10/04/2022 2:26 PM EDT): Patient with elevated lipids most recent lipid profile from 06/23/2022 showed: TC 165 TG 98 HDL 44 LDL 102 Currently on a regimen of: Atorvastatin 40 mg po q pm . continue with current regimen advised to try to adhere to a low cholesterol diet, counseled and educated about diet and exercise, Patient encouraged to come up with a personal goal for weight loss. Assessment & Plan (05/03/2022 3:38 PM EST): Patient with elevated lipids most recent lipid profile from 01/20/2021 showed: TC 173 TG 100 HDL 46 LDL 107 Currently on a regimen of: Atorvastatin 40 mg po q pm . continue with current regimen, repeat Lipid profile advised to try to adhere to a low cholesterol diet, counseled and educated about diet and exercise, Patient encouraged to come up with a personal goal for weight loss. Severe obesity 02/11/2014 Assessment & Plan (07/25/2024 2:38 PM EDT): Previously referred to the comprehensive weight management Program Patient has been counseled and educated about diet and exercise. Personal goal of weight loss discussedPatient has comorbidity of: DM Dietary Recommendations: Fruits, vegetables, whole grains, protein foods, and fat-free or low-fat dairy products are healthy choices. Eat different types of protein foods in your diet. This can include seafood, lean meats, poultry, beans, peas, lentils, nuts, seeds, soy products, and eggs. Limit foods and beverages higher in added sugars, saturated fat, and sodium. Exercise Recommendations: At least 150 minutes of moderate-intensity physical activity per week, or an equivalent combination of moderate- and vigorous-intensity activity Assessment & Plan (07/25/2023 2:57 PM EDT): Referred to the comprehensive weight management Program Assessment & Plan (05/03/2022 3:39 PM EST): Referred to the comprehensive weight management Program today Resolved Problems Problem Noted Date Diagnosed Date Resolved Date Acute otitis externa of left ear 05/03/2022 07/07/2022 Assessment & Plan (05/03/2022 3:43 PM EST): Exam indicative of this Plan: Ciprodex ottic BID x 7 days Encounters Date Type Department Care Team Description 09/16/2024 Travel 09/12/2024 Refill [facility] [address] [place] [address] Maximiliano Byers MD Mixed hyperlipidemia 08/26/2024 Refill [facility] [address] [place], [place] [id number] Maximiliano Byers MD Type 2 diabetes mellitus without complication, without long-term current use of insulin ([facility]/HCC) 07/25/2024 2:30 PM EDT Office Visit [facility] [address] [place] [address] Maximiliano Byers MD Type 2 diabetes mellitus without complication, without long-term current use of insulin (CMS/HCC) (Primary Dx); Severe obesity (CMS/HCC); Skin tag; Cyst of perianal area; Tick bite of right back wall of thorax, initial encounter; Routine physical examination; Dietary counseling; Exercise counseling; Preventative health care 07/25/2024 Travel 07/19/2024 Population Health Risk Score [facility] () Department [address] [place] [phone] Provider, Population Health Generic 07/17/2024 Telephone [facility] [address] [place] [address] Maximiliano Byers MD Chart Prep 07/17/2024 Patient Outreach [facility] [address] [place] [address] Maximiliano Byers MD Pre-visit Planning (Pre-visit planning - LVM ) from Last 3 Months Immunizations Name Administration Dates Next Due Influenza injectable quadriv alent IIV4 with preservative 02/08/2018,04/03/2017,04/26/2016,2015 Influenza injectable quadriv alent preservative free 01/31/2023,03/14/2019 Influenza, IIV3, injectable 02/11/2014, 1,04/28/2010 Influenza, seasonal, injecta ble, preservative free 02/08/2024 Pfizer Covid-19 Vaccine 12+ 02/08/2024 Tdap 10/04/2022,02/24/2009 Zoster, Recombinant 12/27/2022,10/04/2022 Social History Tobacco Use Types Packs/Day Years Used Date Smoking Tobacco: Former Cigarettes Passive Smoke Exposure: Past Smokeless Tobacco: Never Tobacco Cessation:Counseling Given: Not Answered Alcohol Use Standard Drinks/Week Comments Not Currently [...] Orientation Straight 03/07/2022 10 :18 AM EDT Last Filed Vital Signs Vital Sign Reading Time Taken Comments Blood Pressure 133/72 07/25/2024 2:29 PM EDT Pulse 84 07/25/2024 2:29 PM EDT Temperature 36.4 ??C (97.5 ??F) 07/25/2024 2:29 PM ED T Respiratory Rate 18 07/25/2024 2:29 PM EDT Oxygen Saturation 98% 07/25/2024 2:29 PM EDT Inhaled Oxygen Concentration - - Weight 115 kg (252 lb 12.8 oz) 07/25/2024 2:29 P M EDT Height 177.8 cm (5' 10 ) 02/08/2024 3:02 PM EDT Body Mass Index 36.27 02/08/2024 3:02 PM EDT Plan of Treatment Upcoming Encounters Date Type Department Care Team (Late st Contact Info) Description 09/16/2024 10:40 AM EDT Office Visit [facility] [address] [place] [address] 11/21/2024 3:00 PM EDT Office Visit [facility] [address] [place] [address] Maximiliano Byers MD [address] [place] [address] Health Maintenance Due Date Last Done Comments CT Colonography 1965 Dental Prophylaxis 1965 Dental X-Ray: Bitewings 1965 FIT DNA/Cologuard 1965 FIT 1965 FOBT 1965 Sigmoidoscopy 1965 Diabetes: Foot Exam 08/21/1975 Eye Exam 08/21/1975 Alcohol/Substance Use Screening 1977 Hepatitis B Vaccines (1 of 3 - 19+ 3-dose series) 1984 Pneumococcal Vaccine: 50+ Years (1 of 2 - PCV) 1984 Diabetes: Urine Protein Screening 06/23/2023 06/23/2022, 01/20/2021 Dental Oral Exam 10/18/2023 04/17/2023, 04/24/2014 Lipid Panel 02/29/2024 02/28/2023, 06/08, 01/20/2021 SDOH Screening 07/16/2024 07/17/2023 Diabetes: Hemoglobin A1C 01/25/2025 025, 02/08/2024, 11/07/2023, Additional history exists Depression Screening 02/07/2025 02/08/2024, 02/08/20 Tobacco Screening 02/07/2025 02/08/2024 Dental X-Ray: Full Mouth 04/18/2026 04/17/2023, 04/07 Colonoscopy 12/10/2026 12/10/2021 Colorectal Cancer Screening 12/10/2026 DTaP/Tdap/Td Vaccines (3 - Td or Tdap) 10/04/2032 10/04/2022, 02/24/2009 RSV Patients and Patients Aged 60 years or older (1 - 1-dose 75+ series) 2040 HIV Screening Completed 06/23/2022 Hepatitis C Screening Completed 06/23/2022 Zoster Vaccines Completed 12/27/2022, 10/04/2022 COVID-19 Vaccine Completed 02/08/2024, , 10/31/2021, Additional history exists Influenza Vaccine Completed 02/08/2024, , 03/14/2019, Additional history exists HIB Vaccines Aged Out No longer eligi ble based on patient's age to complete this topic HPV Vaccines Aged Out No longer eligi ble based on patient's age to complete this topic Hepatitis A Vaccines Aged Out No long er eligible based on patient's age to complete this topic IPV Vaccines Aged Out No longer eligi ble based on patient's age to complete this topic Meningococcal Vaccine Aged Out No nicholas wing eligible based on patient's age to complete this topic RSV under 20 months Aged Out No longe r eligible based on patient's age to complete this topic Rotavirus Vaccines Aged Out No longer eligible based on patient's age to complete this topic Procedures Procedure Name Priority Date/Time Associated Diagnosis Comments POCT GLYCATED HEMOGLOBIN, TOTAL Routine 07/25/2024 2:35 PM EDT Type 2 diabetes mellitus without complication, without long-term current use of insulin (CMS/HCC) POCT GLUCOSE Routine 07/25/2024 2:30 PM EDT Type 2 diabetes mellitus without complication, without long-term current use of insulin (CMS/HCC) PANORAMIC RADIOGRAPHIC IMAGE Routine 04/17/2023 3:00 PM EST PERIODIC ORAL EVALUATION - ESTABLISHED PATIENT Routine 04/17/2023 3:00 PM EST LIPID PANEL, STANDARD Routine 02/28/2023 9:12 AM EDT HEPATITIS C AB W/REFL TO HCV RNA, QN, PCR Routine 06/23/2022 8:30 AM EST Type 2 diabetes mellitus without complication, without long-term current use of insulin (CMS/HCC) HIV 1/2 ANTIGEN/ANTIBODY, FOURTH GENERATION W/RFL Routine 06/23/2022 8:30 AM EST Type 2 diabetes mellitus without complication, without long-term current use of insulin (CMS/HCC) ALBUMIN, RANDOM URINE W/O CREATININE Routine 06/23/2022 8:30 AM EST Type 2 diabetes mellitus without complication, without long-term current use of insulin (CMS/HCC) HM COLONOSCOPY Routine 12/10/2021 from Last 3 Months or Most Recently Relevant to Health Maintenance Results * (ABNORMAL) POCT HGB A1C (07/25/2024 2:35 PM EDT) Hemoglobin A1C 6.2(A) 4.0 - 6.0 % QC Media Lot # [id number] Lot# Expiration Date , Blood 07/25/2024 2:35 PM EDT Maximiliano Allen MD POINT OF CARE TEST EN TER/EDIT ORDERABLES Final Result * (ABNORMAL) POCT Glucose (07/25/2024 2:30 PM EDT) Pathologist [facility] Glucose Blood, POC 219(A) 60 - 200 mg/dL QC Media Lot # [id number] Lot# Expiration Date Blood Capillary blood specimen / Unknown 07/25/2024 2:30 PM EDT Maximiliano Allen MD POINT OF CARE TEST EN TER/EDIT ORDERABLES Final Result * Lipid Panel, Standard (02/28/2023 9:12 AM EDT) Triglycerides 65 <150 mg/dL [facility] Comment:Desirable Triglyceri de: less than 150 mg/dLBorderline High Triglyceride 150-199 mg/dLHigh Triglyceride: 200-499 mg/dLVery High Triglyceride: greater than or equal to 5OO mg/dL Cholesterol 154 <200 mg/dL [facility] Comment:Desirable Cholestero l: less than 200 mg/dLBorderline High Cholesterol: 200-239 mg/dLHigh Cholesterol: greater than 239 mg/dL LDL Cholesterol Calculated 95 <100 mg/dL [facility] Comment:Desirable LDL: less than 100 mg/dLNear Optimal/Above Optimal LDL: 110- 129 mg/dLBorderline High LDL: 130-159 mg/dLHigh LDL: 160-189 mg/dLVery High LDL: greater than or equal to 190 mg/dL HDL Cholesterol 46 >40 mg/dL [facility] Comment:Desirable HDL: great er than 40 mg/dL Note: This HDL assay may give artificially low results in patients with liver disease. 02/28/2023 9:12 AM EDT 02/28/2023 11:13 AM EDT Maximiliano Allen MD LAB BLOOD ORDERABLES Final Result [facility] [address] [place] [address] [phone] * Hepatitis C Antibody with Reflex to HCV, RNA, Quantitative, Real-Time PCR (06/23/2022 8:30 AM EST) Pathologist [facility] Hepatitis C Antibody NON-REACT DANA NON-REACT DANA [facility] [place] [facility] Index 0.03 <1.00 [facility] [place] [facility] Comment: HCV antibody was non-reactive. There is no laboratory evidence of HCV infection. In most cases, no further action is required. However, if recent HCV exposure is suspected, a test for HCV RNA (test code 13750) is suggested. For additional information please refer to http://education.[employer]/faq/JGT21n6 (This link is being provided for informational/ educational purposes only.) Blood Venous blood specimen / Unknown 06/23/2022 8:30 AM EST 06/23/2022 8:30 AM EST Narrative [facility] - 06/23/2022 8:05 PM EST FASTING:YES FASTING: YES Maximiliano Allen MD LAB BLOOD ORDERABLES Final Result [facility] [address] [facility] [place] [address] [facility] [place] [facility] [address] [facility], [address] [place] [address] * Albumin, Random Urine W/O Creatinine (06/23/2022 8:30 AM EST) Pathologist [facility] Albumin, Urine <0.2 See Note: mg/dL [facility] [place] [facility] Comment: Reference Range: Reference Range Not established [facility] [place] [facility] Comment: The ADA defines abnormalities in albumin excretion as follows: Albuminuria Category ? Result (mcg/mg creatinine) Normal to Mildly increased ?<30 Moderately increased ?30-299 Severely increased ?> OR = 300 The ADA recommends that at least two of three specimens collected within a 3-6 month period be abnormal before considering a patient to be within a diagnostic category. Urine Urine specimen obtained by clean catch procedure / Unknown 06/23/2022 8:30 AM EST 06/23/2022 8:30 AM EST Narrative [facility] - 06/23/2022 8:05 PM EST FASTING:YES FASTING: YES us Maximiliano Allen MD LAB URINE ORDERABLES Final Result [facility] [address] [facility], [facility], [place] [address] [facility] [place] [facility] [address] [facility], [address]) [place] [address] * HIV-1/2 Antigen and Antibodies, Fourth Generation, with Reflexes (06/23/2022 8:30 AM EST) HIV Antigen/Antibody, 4th Generation NON-REAC TIVE NON-REAC TIVE [facility] [place] [facility] Comment: HIV-1 antigen and HIV-1/HIV-2 antibodies were not detected. There is no laboratory evidence of HIV infection. PLEASE NOTE: This information has been disclosed to you from records whose confidentiality may be protected by state law. ??If your state requires such protection, then the state law prohibits you from making any further disclosure of the information without the specific written consent of the person to whom it pertains, or as otherwise permitted by law. A general authorization for the release of medical or other information is NOT sufficient for this purpose. ?? For additional information please refer to http://education.[employer]/faq/OSA556 (This link is being provided for informational/ educational purposes only.) The performance of this assay has not been clinically validated in patients less than 2 years old. Blood Venous blood specimen / Unknown 06/23/2022 8:30 AM EST 06/23/2022 8:30 AM EST Narrative [facility] - 06/23/2022 8:05 PM EST FASTING:YES FASTING: YES Maximiliano Allen MD LAB BLOOD ORDERABLES Final Result [facility] [address] [facility], [facility], [place] [address] [facility] [address] [facility], [address]) [place] [address] * Colonoscopy (12/10/2021) Colonoscopy Normal Normal 12/10/2021 Roshni Lucas - 12/10/2021 3:32 PM EDT Recommended 5 year follow up ([facility] [place] Historical Provider HEALTH MAINTENANCE Edited Result - Final from Last 3 Months or Most Recently Relevant to Health Maintenance Insurance [facility] C[facility] [employer] AD[place] Care Teams [employer] Relationship Specialty Start Date End Date Maximiliano Byers MD [address] [place] [id number] PCP - General Internal Medicine 05/08/18
[2024-09-16 12:16] LABS: Alanine Aminotransferase 39 U/L (0-40); Albumin Level 4.2 g/dL (3.5-5.0); Anion Gap 12 (12-20); Aspartate Amino Transferase 35 U/L (5-37); Bilirubin Total 0.5 mg/dL (0.0-1.0); Blood Urea Nitrogen 13 mg/dL (9-16); Calcium 8.9 mg/dL (8.4-10.2); Carbon Dioxide 27 mmol/L (22-29); Chloride 102 mmol/L (96-108); Cholesterol 147 mg/dL (<200); Estimated Glomerular Filt Rate > 60; Glucose Random 158 mg/dL (60-115); HDL Cholesterol 37 mg/dL (>40); LDL Cholesterol Calculated 94 mg/dL (<100); Potassium 4.5 mmol/L (3.3-5.1); Sodium 136 mmol/L (135-145); Total Protein 7.5 g/dL (6.5-8.0); Triglycerides 82 mg/dL (<150)
[2024-09-16 12:21] LABS: Creatinine Urine 180.62 mg/dL; Microalbum/Creatinine Ratio Ur 13.2 ug/mg cr (<30)
[2024-09-16 12:23] LABS: Alkaline Phosphatase 80 U/L (39-117)
[2024-09-16 12:28] LABS: Prostate Specific Antigen Scr 0.34 ng/mL (<0.05-4.0)
[2024-09-17 13:44] LABS: Lyme Blot 1.15 index
[2024-09-18 13:16] LABS: Lyme Abs Screen POSITIVE
[2024-09-18 22:18] LABS: 18 KD (IgG) Band NON-REACTIVE; 23 KD (IgG) Band NON-REACTIVE; 23 KD (IgM) Band NON-REACTIVE; 28 KD (IgG) Band NON-REACTIVE; 30 KD (IgG) Band NON-REACTIVE; 39 KD (IgM) Band NON-REACTIVE; 39KD (IgG) Band NON-REACTIVE; 41 KD (IgM) Band NON-REACTIVE; 41KD (IgG) Band REACTIVE; 45 KD (IgG) Band NON-REACTIVE; 58 KD (IgG) Band NON-REACTIVE; 66 KD (IgG) Band NON-REACTIVE; 93 KD (IgG) Band NON-REACTIVE; Lyme IgG Blot Interp NEGATIVE (NEGATIVE); Lyme IgM Blot Interp NEGATIVE (NEGATIVE)
== END 2024-09-16 08:57 | disposition home or self-care (01) ==
LOC: HO.HHCL 08:56
PROVIDERS: Visit Provider Internal Medicine
DX: E11.9 Type 2 diabetes mellitus without complications (principal); E66.01 Morbid (severe) obesity due to excess calories; Z00.00 Encounter for general adult medical examination without abnormal findings; S20.461A Insect bite (nonvenomous) of right back wall of thorax, initial encounter; W57.XXXA Bitten or stung by nonvenomous insect and other nonvenomous arthropods, initial encounter; T14.8XXA Other injury of unspecified body region, initial encounter
CPT/HCPCS: 36415; 80053; 80061; 82043; 82570; 84153; 86617; 86618